=== PATIENT | female | born 1990 | race Caucasian/White ===

== ENCOUNTER 2016-06-28 18:13 | Emergency (ER) | payer SELFPAY ==
[2016-06-28] MEDS ORDERED: FONDAPARINUX SODIUM 7.5 MG/0.6 ML SYRINGE SUB-Q ONE (21:30)
[2016-06-28 21:43] LABS: HCG,QUALITATIVE URINE NEGATIVE
--- NOTE | 2016-06-29 07:53 | US ---
VENOUS ULTRASOUND OF EXTREMITY Indications: History of left DVT one year ago. Left lower extremity swelling. History of "protein S deficiency ". Comparison: None FINDINGS: Multiple grayscale, color-flow and duplex Doppler images during left lower extremity DVT ultrasound are obtained from the common femoral vein down through to the peroneal and posterior tibial veins. DEEP VENOUS THROMBOSIS: Extensive occlusive thrombus is identified. COMMON FEMORAL VEIN: Thrombosed. PROXIMAL FEMORAL VEIN: Thrombosed MID TO DISTAL FEMORAL VEIN: Thrombosed. POPLITEAL VEIN: Thrombosed. PROXIMAL CALF VEINS: Thrombosed proximally. Minimal flow is present within the distal peroneal and posterior tibial veins Note is made of thrombus throughout the lesser saphenous vein as well. IMPRESSION: Extensive occlusive thrombus extending from the common femoral vein to the peroneal and posterior tibial veins. Occlusive thrombus is also identified within the lesser saphenous vein. Preliminary report was provided by [place] at approximately 2110 hours on 06/28/2016.
== END 2016-06-28 22:21 | disposition home or self-care (01) ==
LOC: ED 18:13
DX: I82.4Z2 Acute embolism and thrombosis of unspecified deep veins of left distal lower extremity (principal); D68.59 Other primary thrombophilia
CPT/HCPCS: 81025; 99283 ×2; 96372; 93971; J1652